=== PATIENT | female | born 1965 | race Hispanic/Latino ===

== ENCOUNTER 2017-05-07 15:27 | Outpatient (CLI) | payer BC ==
--- NOTE | 2017-05-07 15:58 | XRay Report ---
CHEST TWO VIEWS: 05/07/17 15:27:00 CLINICAL: Atypical chest pain. COMPARISON: 11/20/09 FINDINGS: Normal heart and pulmonary vasculature. The lungs are normally expanded and clear.Dextroscoliosis. The bones are otherwise normal. IMPRESSION: No acute cardiopulmonary process.
== END 2017-05-07 15:28 | disposition home or self-care (01) ==
LOC: SPVIMAG 15:27
PROVIDERS: ATTEND Internal Medicine
DX: R07.89 Other chest pain (principal); M41.9 Scoliosis, unspecified; Z78.0 Asymptomatic menopausal state
CPT/HCPCS: 71020